=== PATIENT | male | born 1980 | race African-American/Black ===

== ENCOUNTER 2020-03-11 00:09 | Emergency (ER) | payer BC, OTHER, SELFPAY ==
[2020-03-11 00:15] VITALS: BP 130/82; PULSE 87; RESP 18; TEMP 36.2; O2SAT 100
--- NOTE | 2020-03-11 00:40 | ED_ITS ---
HPI - Skin/Abscess/Foreign Bdy General Chief complaint: Skin/Abscess/Foreign Body Stated complaint: L 5th finger lac Time Seen by Provider: 03/11/20 00:17 History of Present Illness HPI narrative: Patient is a 39-year-old male who presents the ER with a laceration to his left fifth digit. Is located over the fingertip. He was cutting onions when he accidentally sliced his finger. He was able to stop the bleeding but then when he began to take a shower and took the dressing off he b forrest bleeding again. He cannot get the bleeding to stop so he came to the ER. Upon arrival it did stop. He reports his tetanus immunization is up-to-date. No numbness or tingling. Related Data Allergies Allergy/AdvReac Type Severity Reaction Status Date / Time No Known Allergies Allergy Verified 03/11/20 00:17 Review of Systems Integumentary/Breasts: Skin/Breast: Denies rash Comments: fingertip laceration left 5th digit. Neurologic: Denies numbness PMFSH Past Medical History Medical History (Updated 03/11/20 @ 00:49 by Chinmay Skaggs MD) Healthy adult male Surgical History Surgical History (Updated 03/11/20 @ 00:44 by Chinmay Skaggs MD) History of surgery on arm Social History Social History (Updated 03/11/20 @ 00:44 by Chinmay Skaggs MD) Smoking status: Never smoker Gender identity (if verbalized by the patient): Male Exam Narrative: Exam Narrative: GENERAL: Well-appearing, well-nourished, and in no acute distress. HEAD: Normocephalic, atraumatic. EXTREMITIES: Left fifth digit with 1 cm superficial laceration to the tip of the finger. Normal range of motion and sensation. Brisk capillary refill. NEURO: No focal deficits. Alert and oriented x3. PSYCH: Normal mood and affect. Course Vital Signs Vital signs: Vital Signs Temperature 97.2 F L 03/11/20 00:15 Pulse Rate 87 03/11/20 00:15 Respiratory Rate 18 03/11/20 00:15 Blood Pressure 130/82 03/11/20 00:15 Pulse Oximetry 100 03/11/20 00:15 Temperature 97.2 F L 03/11/20 00:15 Pulse Rate 87 03/11/20 00:15 Respiratory Rate 18 03/11/20 00:15 Blood Pressure 130/82 03/11/20 00:15 Pulse Oximetry 100 03/11/20 00:15 Procedures Laceration Laceration 1: Date: 03/11/20 Time: 00:47 Site: other (left 5th finger) Size (cm): 1 Description: linear Depth: simple, single layer Pre-repair: irrigated ====== Skin Level ====== Skin layer closed with: dermabond ====== Subcutaneous Layer ====== ====== Muscle Layer ====== ====== Tendon Layer ====== Discharge Plan Discharge Clinical Impression: Laceration of skin Patient Disposition: Home, Self-Care Condition: Stable Instructions: Skin Adhesive Care (ED) Additional Instructions: Return to the ER if you suffer new injury, your wound becomes infected, or you have other concerns. Follow-up/Referrals: PHYSICIAN,[employer] [Primary Care Provider] -
[2020-03-11 01:05] VITALS: BP 128/72; PULSE 74; RESP 20; O2SAT 100
== END 2020-03-11 01:12 | disposition home or self-care (01) ==
PROVIDERS: Emergency Provider Emergency Medicine
DX: S61.217A Laceration without foreign body of left little finger without damage to nail, initial encounter (principal); W26.0XXA Contact with knife, initial encounter
CPT/HCPCS: 12001; 99282